=== PATIENT | female | born 1995 | race African-American/Black ===

== ENCOUNTER 2021-12-29 12:47 | Emergency (ER) | payer SELFPAY ==
[2021-12-29 12:51] VITALS: BP 106/64; PULSE 87; RESP 18; TEMP 36.9; O2SAT 97
[2021-12-29 13:11] LABS: Basophils Percent Auto 0.4 % (0.2-1.2); Eosinophils Percent Auto 0.9 % (0-4.4); Hematocrit 44.5 % (37.0-47.0); Hemoglobin 14.4 g/dL (12.0-15.0); Lymphocytes Absolute Auto 2.14 K/mm3 (0.9-3.2); Mean Corpuscular HGB Conc 32.4 g/dl (32-36); Mean Corpuscular Hemoglobin 29.3 pg (26-34); Mean Corpuscular Volume 90.6 fl (80-100); Monocytes Absolute Auto 0.2 K/mm3 (0.1-0.6); Monocytes Percent Auto 5.4 % (2.6-8.5); Neutrophils Percent Auto 45.3 % (45.5-73.1); Platelet Count Result 288 k/mm3 (150-375); Red Blood Count 4.91 M/mm3 (4.2-5.4); Red Cell Distribution Width 12.5 % (11.5-14.5); White Blood Count 4.5 K/mm3 (4.5-10.0)
[2021-12-29 13:16] LABS: Add Urine Microscopic? YES; Appearance Urine Cloudy (Clear); Bilirubin Urine Negative (Negative); Blood Urine Negative (Negative); Color Urine Yellow (Yellow); Glucose Urine UA Negative (Negative); Ketones Urine Trace mg/dL (Negative); Leukocyte Esterase Ur Negative LEU/UL (Negative); Mucus Urine Moderate /lpf; Nitrate Urine Negative (Negative); Protein Urine Negative (Negative); RBC Urine 0-2 /hpf (0-2); Specific Grav Ur 1.021 (1.001-1.035); Squamous Epithelial Cell Urine Few /hpf (Few); WBC Urine 0-3 /hpf
[2021-12-29 13:24] LABS: Alanine Aminotransferase 15 U/L (4-35); Albumin Level 4.8 g/dL (3.5-5.1); Alkaline Phosphatase 55 U/L (38-126); Anion Gap 8 mmol/L (8-16); Aspartate Amino Transferase 26 U/L (14-36); Bilirubin,Total 0.6 mg/dL (0.2-1.3); Blood Urea Nitrogen 8 mg/dL (7-17); Calcium 9.4 mg/dL (8.4-10.2); Carbon Dioxide 27 mmol/L (22-30); Chloride 105 mmol/L (98-107); Estimated CRCL calculation 78 ml/min; Estimated Glomerular Filt Rate > 60; Glucose 86 mg/dL (65-110); Sodium 140 mmol/L (137-145)
[2021-12-29 13:26] LABS: Ethanol < 10 mg/dL (<10)
[2021-12-29 13:29] LABS: Amphetamine Screen Urine Negative (Negative); Barbiturate Screen Urine Negative (Negative); Benzodiazepines Screen Urine Negative (Negative); Cannabinoid Screen Urine Negative (Negative); Cocaine Screen Urine Negative (Negative); Methadone Screen Urine Negative (Negative); Opiate Screen Urine Negative (Negative); Phencyclidine Screen Urine Negative (Negative)
[2021-12-29 13:55] LABS: Thyroid Stimulating Hormone 0.579 uIU/mL (0.465-4.680)
--- NOTE | 2021-12-29 14:17 | PC.NURSE ---
Pt has been medically cleared [facility]. Crisis called and states they will come see her.
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
[2021-12-29 14:52] LABS: SARS-CoV-2 RNA PCR Negative
--- NOTE | 2021-12-29 15:09 | PC.NURSE ---
Pt phone in plugged in per request.
--- NOTE | 2021-12-29 16:48 | PC.NURSE ---
Crisis evaluated pt and stated she can be safety planned. Care coordination assisting pt with additional resources.
--- NOTE | 2021-12-29 17:05 | PCCCNOTE ---
Bedside ARRON Wen requested field care coordinator to meet with patient for homeless resources and transportation. Met with patient at bedside, she states that she doesn't have anywhere to go tonight, reports that she has stayed at homeless shelters before but that was in another state. athletic coordinator called [facility] hotline but it was closed. Called to 211 and they only had the phone number for [facility] hotline. Called [facility] and they had no beds tonight but advised for the patient to call in the morning. Called to [facility] and there was no answer. Called to [facility] at [phone] which was a non working #. Called to [facility], answering female advises no beds tonight but should have two beds for tomorrow, advised for the patient to call between 8:30-10:30am. No answer at [facility]. Only walk-in available for tonight is [facility]. Provided patient with list of resources with all the notes documented in this note. Cab voucher written and provided to bedside ARRON Wen for patient to go to [facility]. Provided patient with bus tokens for the patient for transportation tomorrow if a [facility] is available. Cab voucher given to bedside ARRON Wen. Patient provided with water as requested.
== END 2021-12-29 17:09 | disposition home or self-care (01) ==
PROVIDERS: Emergency Medicine; Emergency Provider Emergency Medicine; PCP Pediatrics
DX: F32.A Depression, unspecified (principal); Z20.822 Contact with and (suspected) exposure to COVID-19
CPT/HCPCS: 36415; 80053; 80307; 81001; 81025; 84443; 85025; 99284; C9803; U0003; U0005

== ENCOUNTER 2022-03-22 15:35 | Emergency (ER) | payer SELFPAY ==
--- NOTE | ~2022-03-22 | CT_ITS ---
EXAMINATION: CT abdomen pelvis w con DATE: 03/22/2022 17:17 INDICATION: abdominal pain TECHNIQUE: Computed tomography (CT) of the abdomen and pelvis was performed with 100 mL Omnipaque-300 intravenous contrast. Automated exposure control and iterative reconstruction technique were employe d. The dose-length product was 219.08 mGy-cm. COMPARISON: None. FINDINGS: Lower thorax: Unremarkable Liver: Normal. Biliary/Gallbladder: Gallbladder is normal. No bile duct dilation. Pancreas: No mass or duct dilation. Spleen: Normal. Adrenals:No mass. Kidneys: No mass, stone, or hydronephrosis. GI tract: No small or large bowel dilation. Normal appendix. Mesentery/Peritoneum: No ascites, mass, or free air. Retroperitoneum: No mass. Pelvis: 4.0 cm left ovarian cyst. 3.5 cm right ovarian cyst. Right corpus luteal cyst. Soft Tissues: Soft tissues and body wall unremarkable. Bones: No acute osseous finding. IMPRESSION: 1. No acute abdominopelvic process detected. 2. 4 cm left and 3.5 cm right simple ovarian cysts. No imaging follow-up recommended, noting that sim ple cysts that are symptomatic and/or larger than 3 cm will occasionally undergo resection. 3. Right corpus luteal cyst. Reviewed, dictated and finalized at location K. IMPRESSION: 1. No acute abdominopelvic process detected. 2. 4 cm left and 3.5 cm right simple ovarian cysts. No imaging follow-up recomm ended, noting that simple cysts that are symptomatic and/or larger than 3 cm wi ll occasionally undergo resection. 3. Right corpus luteal cyst.
[2022-03-22 15:38] VITALS: BP 112/87; PULSE 134; RESP 16; O2SAT 100
[2022-03-22 15:52] VITALS: BP 104/92; PULSE 135; RESP 18; O2SAT 100
--- NOTE | 2022-03-22 16:04 | ED.ABDPAIN ---
HPI - Abdominal Pain General Chief Complaint: Abdominal Pain Stated Complaint: ABD PAIN X2D Time Seen by Provider: 03/22/22 15:38 Source: patient Mode of arrival: ambulatory Limitations: no limitations History of Present Illness HPI narrative: 26-year-old female presents today with complaints of abdominal pain that started yesterday. Patient states the pain moves to the lower pelvic region and now is to the umbilical and generalized abdominal area. I patient is sitting up patient is rated 4 out of a 10. Patient denied any urinary symptoms for me like dysuria, hematuria, frequency but during triage assessment patient did endorse pain at the end of urination. Patient denies any back pain, fevers, chills, body aches, chance of . Related Data Allergies Allergy/AdvReac Type Severity Reaction Status Date / Time No Known Allergies Allergy Verified 03/22/22 15:53 Review of Systems Review of Systems: CONSTITUTIONAL: Denies fever, chills, or sweats. EYES: Denies visual changes, redness, or discharge. ENT: Denies rhinorrhea, congestion, sore throat, or otalgia. CARDIOVASCULAR: Denies chest pain, palpitations, or edema. RESPIRATORY: Denies cough or dyspnea. GASTROINTESTINAL: Abdominal pain. Denies nausea, vomiting, or diarrhea. GENITOURINARY: Denies dysuria or hematuria. SKIN: Denies rash or itching. MUSCULOSKELETAL: Denies back pain, joint pain, or myalgia. NEUROLOGIC: Denies headache, numbness, dizziness, or weakness. PSYCHIATRIC: Denies anxiety or depression. PMFSH Past Medical History Medical History Healthy female adult Surgical History Surgical History (Updated 12/29/21 @ 14:21 by Bruce Rasmussen MD) No history of previous surgery Social History Social History Smoking status: Never smoker Exam Narrative: GENERAL: Well-appearing, well-nourished, and in no acute distress. HEAD: Normocephalic, atraumatic. EYES: PERRLA and EOMI. NECK: Supple. No adenopathy or masses. No carotid bruits or JVD CHEST: Clear to auscultation. No respiratory distress. No wheezes rales or rhonchi HEART: Regular rate and rhythm. No murmur heard. Normal peripheral pulses. ABDOMEN: Generalized tenderness and guarding. nondistended, normal active bowel sounds. EXTREMITIES: Normal range of motion. No edema. SKIN: Warm, dry, no rash. NEURO: No focal deficits. Alert and oriented x3. PSYCH: Normal mood and affect. Course Course Emergency Course: Results discussed with patient. Plan follow up with OB. Vital Signs Vital signs: Vital Signs Pulse Rate 134 H 03/22/22 15:38 Respiratory Rate 16 03/22/22 15:38 Blood Pressure 112/87 03/22/22 15:38 Pulse Oximetry 100 03/22/22 15:38 Pulse Rate 87 03/22/22 17:37 Respiratory Rate 11 L 03/22/22 17:37 Blood Pressure 112/79 03/22/22 17:37 Pulse Oximetry 100 03/22/22 17:37 MDM - Abdominal Pain MDM Narrative Medical decision making narrative: 26-year-old female HPI as noted. Differentials including abdominal pain, appendicitis, gastroenteritis, constipation, pyelonephritis, UTI. Labs ordered. CBC CMP and urinalysis without any concerning findings. Patient distiller with some guarding noted. CT ordered. CT findings as noted. Patient to be discharged home plan follow-up with OB. Differential Diagnosis Differential diagnosis: Likely abdominal pain, acute appendicitis, constipation and gastroenteritis Medical Records Attestation: I reviewed the patient's medical records. Lab Data Attestation: I reviewed the patient's lab results. Result diagrams: 03/22/22 16:04 03/22/22 16:04 Labs: Lab Results 03/22/22 03/22/22 03/22/22 Range/Units 16:04 16:04 16:04 WBC 7.7 (4.5-10.0) K/mm3 RBC 4.71 (4.2-5.4) M/mm3 Hgb 13.8 (12.0-15.0) g/dL Hct 42.6 (37.0-47.0) % MCV 90.4 (80-100) fl [facility]
[2022-03-22] MEDS: SODIUM CHLORIDE 0.9% IV 1,000 ML 999 ML IV CONT (16:09)
[2022-03-22 16:13] LABS: Basophils Percent Auto 0.4 % (0.2-1.2); Eosinophils Absolute Auto 0.1 K/mm3 (0-0.3); Eosinophils Percent Auto 1.2 % (0-4.4); Hematocrit 42.6 % (37.0-47.0); Hemoglobin 13.8 g/dL (12.0-15.0); Immature Granulocyte Absolute 0.01 K/mm3 (0.00-0.031); Immature Granulocyte Percent A 0.1 % (0-0.5); Lymphocytes Absolute Auto 2.89 K/mm3 (0.9-3.2); Lymphocytes Percent Auto 37.4 % (18.3-44.2); Mean Corpuscular HGB Conc 32.4 g/dl (32-36); Mean Corpuscular Hemoglobin 29.3 pg (26-34); Mean Corpuscular Volume 90.4 fl (80-100); Mean Platelet Volume 10.5 fl (7.4-10.4); Monocytes Absolute Auto 0.4 K/mm3 (0.1-0.6); Monocytes Percent Auto 5.1 % (2.6-8.5); Neutrophils Absolute Auto 4.3 K/mm3 (1.3-6.7); Neutrophils Percent Auto 55.8 % (45.5-73.1); Platelet Count Result 278 k/mm3 (150-375); Red Blood Count 4.71 M/mm3 (4.2-5.4); White Blood Count 7.7 K/mm3 (4.5-10.0)
[2022-03-22 16:16] LABS: Appearance Urine Clear (Clear); Bilirubin Urine Negative (Negative); Color Urine Yellow (Yellow); Glucose Urine UA Negative (Negative); Ketones Urine Negative (Negative); Leukocyte Esterase Ur Trace LEU/UL (Negative); Nitrate Urine Negative (Negative); Protein Urine Negative (Negative); Specific Grav Ur 1.015 (1.001-1.035); Urobilinogen Urine 0.2 mg/dL (<2.0)
[2022-03-22 16:21] LABS: Bacteria Urine Trace /hpf; Mucus Urine Rare /lpf; RBC Urine 0-2 /hpf (0-2); Squamous Epithelial Cell Urine Moderate /hpf (Few); WBC Urine 0-3 /hpf
[2022-03-22 16:22] LABS: Alanine Aminotransferase 26 U/L (6-35); Anion Gap 11 mmol/L (8-16); Aspartate Amino Transferase 47 U/L (14-36); Bilirubin,Total 0.5 mg/dL (0.2-1.3); Blood Urea Nitrogen 8 mg/dL (7-17); Calcium 9.6 mg/dL (8.4-10.2); Carbon Dioxide 22 mmol/L (22-30); Chloride 106 mmol/L (98-107); Estimated Glomerular Filt Rate > 60; Glucose 134 mg/dL (65-110); Potassium 4.1 mmol/L (3.4-5.0); Sodium 139 mmol/L (137-145)
[2022-03-22 16:23] LABS: Albumin Level 4.8 g/dL (3.5-5.1); Alkaline Phosphatase 47 U/L (38-126); Lipase 44 U/L (23-300)
[2022-03-22 16:28] LABS: Add Urine Microscopic? YES; Blood Urine Trace-Intact (Negative)
[2022-03-22 17:37] VITALS: BP 112/79; PULSE 87; RESP 11; O2SAT 100
[2022-03-22 18:05] VITALS: BP 112/79; PULSE 79; RESP 12; O2SAT 100
== END 2022-03-22 18:05 | disposition home or self-care (01) ==
PROVIDERS: Emergency Provider Nurse Practitioner Family
DX: N83.201 Unspecified ovarian cyst, right side (principal); K59.00 Constipation, unspecified
CPT/HCPCS: 36415; 74177; 80053; 81001; 81025; 83690; 85025; 96360; 99284; J7030; Q9967